=== PATIENT | female | born 1990 | race American Indian/Alaskan Native ===

== ENCOUNTER 2017-02-26 21:49 | Emergency (ER) | payer OTHER ==
[~2017-02-26] VITALS: Ht 170.2 cm; Wt 88.5 kg
[~2017-02-26 21:49] MED LIST: DEPO-PROVE150 MG/1 M IM; HYDROXYZINE HCL25 MG PO; KETOPROFEN50 MG PO; MACRODANTIN100 MG PO; NORCO 5-325 TA1 EACH PO; NUVARING VAGIN1 EACH VG; PYRIDIUM200 MG PO; SULFAMETHOXAZO1 EAC1 PO
== END 2017-02-26 23:24 | disposition home or self-care (01) ==
LOC: ED 21:49
DX: S70.12XA Contusion of left thigh, initial encounter (principal); S00.03XA Contusion of scalp, initial encounter; F17.200 Nicotine dependence, unspecified, uncomplicated; Z90.49 Acquired absence of other specified parts of digestive tract; Z88.1 Allergy status to other antibiotic agents; V49.9XXA Car occupant (driver) (passenger) injured in unspecified traffic accident, initial encounter; Y92.411 Interstate highway as the place of occurrence of the external cause
CPT/HCPCS: 99282

== ENCOUNTER 2018-05-27 14:58 | Inpatient (IN) | payer BC ==
[~2018-05-27] VITALS: Ht 172.7 cm; Wt 97.0 kg
== END 2018-05-30 12:20 | disposition home or self-care (01) | DRG 807 ==
LOC: FBCO 14:58 → FBC 15:15
PROVIDERS: ADMIT Obstetrics & Gynecology
PROC: 10E0XZZ Delivery of Products of Conception, External Approach (ICD-10-PCS; principal; 2018-05-27)
PROC: 0UQMXZZ Repair Vulva, External Approach (ICD-10-PCS; 2018-05-27)
PROC: 3E0R3BZ Introduction of Anesthetic Agent into Spinal Canal, Percutaneous Approach (ICD-10-PCS; 2018-05-27)
PROC: 00HU33Z Insertion of Infusion Device into Spinal Canal, Percutaneous Approach (ICD-10-PCS; 2018-05-27)
DX: O69.1XX0 Labor and delivery complicated by cord around neck, with compression, not applicable or unspecified (principal); Z37.0 Single live birth; Z3A.38 38 weeks gestation of pregnancy; O71.82 Other specified trauma to perineum and vulva
CPT/HCPCS: 36415; 85027; J0690; J2590; J3010

== ENCOUNTER 2020-08-13 11:59 | Emergency (ER) | payer BC ==
[~2020-08-13] VITALS: Ht 172.7 cm; Wt 90.7 kg
== END 2020-08-13 16:15 | disposition home or self-care (01) ==
LOC: ED 11:59
DX: M54.5 Low back pain (principal); K59.00 Constipation, unspecified; F17.200 Nicotine dependence, unspecified, uncomplicated; Z88.0 Allergy status to penicillin
CPT/HCPCS: 81001; 99283

== ENCOUNTER 2020-09-16 21:40 | Emergency (ER) | payer BC ==
[~2020-09-16] VITALS: Ht 172.7 cm; Wt 90.7 kg
== END 2020-09-16 23:47 | disposition home or self-care (01) ==
LOC: ED 21:40
DX: K80.70 Calculus of gallbladder and bile duct without cholecystitis without obstruction (principal); F17.200 Nicotine dependence, unspecified, uncomplicated; Z88.0 Allergy status to penicillin
CPT/HCPCS: 76705; 80053; 81001; 83690; 84703; 85025; 96374; 99284-25; J2405; J7030

== ENCOUNTER 2020-10-10 08:35 | Day surgery (SDC) | payer BC, OTHER ==
[~2020-10-10] VITALS: Ht 172.7 cm; Wt 86.4 kg
--- NOTE | 2020-10-10 14:57 | NUR ---
10/10/20 1457 Tabatha Carrillo 1452- PT ARRIVES TO PACU NONAROUSABLE TO NOXIOUS STIMULI WITH AN OPA IN PLACE. RESP EVEN AND UNLABORED. OXYGEN SAT HIGH 90'S TO 100% ON 6L VIA MASK.
[2020-10-10] MEDS ORDERED: IBUPROFEN600 MG PO (15:04)
[2020-10-10] MEDS ORDERED: OXYCODON-ACETA1 EAC2 PO (15:05)
[2020-10-10] MEDS ORDERED: ACETAMINOPHEN500 MG PO (15:05)
[2020-10-10] MEDS ORDERED: ZOFRAN4 MG PO (16:19)
--- NOTE | 2020-10-10 16:49 | NUR ---
1535: PATIENT BACK IN DAY SURGERY ROOM FROM PACU. RATES PAIN 2/10. PATIENT HESITANT TO TAKE PAIN MEDICATION DUE TO PAST EXPERIENCE WITH NAUSEA AND VOMITING WITH PAIN MEDS. DECLINES PAIN MEDS AT THIS TIME. VS CHECKED. ABDOMEN SITE WITH SMALL AMOUNT OF RED DRAINAGE. IV SITE WNL. SCDs ON. ICE WATER PLACED AT BEDSIDE. 1600: PATIENT GIVEN WARM BLANKETS PER REQUEST. 1640: VS CHECKED. PATIENT GIVEN SALTINE CRACKERS TO EAT. MEDICATED WITH 1 TAB OF PERCOCET. CALL LIGHT WITHIN REACH.
--- NOTE | 2020-10-10 17:03 | NUR ---
REQUESTED IV ZOFRAN TO HELP NAUSEA. AND GIVEN.
--- NOTE | 2020-10-10 18:00 | NUR ---
PROVIDED PATIENT WITH DISCHARGE INSTRUCTION, REINFORCED STERI STRIPS WITH BANDAIDS. PATIENT VERBALIZED UNDERSTANDING, ANSWERED PATIENT'S QUESTIONS AND CONCERNS. REPORTS PAIN 2/10 ON PAIN SCALE. PATIENT VOIDED WELL. PATIENT TRANSFERED INTO CAR WELL.
--- NOTE | 2020-10-11 10:56 | PATH ---
[facility] [address] [facility] [place], [place] [address] Signed SPECIMEN(S): A GALLBLADDER SPECIMEN SOURCE: A. GALLBLADDER CLINICAL HISTORY: Laparoscopic cholecystectomy. Cholecystitis with calculus. FINAL PATHOLOGIC DIAGNOSIS: Gallbladder, cholecystectomy: - Chronic cholecystitis with cholesterolosis. - Cholelithiasis. NAL:cml:C2NR MICROSCOPIC EXAMINATION: Histologic sections of all submitted blocks are examined by light microscopy. These findings, together with the gross examination, support the pathologic diagnosis. GROSS DESCRIPTION: The specimen, labeled "MV, gallbladder," is received in formalin and consists of Specimen: Previously opened gallbladder. Dimensions: 6.8 cm in length and 4.8 cm in inner circumference. Serosa: Violaceous and smooth. Cystic Duct: Unobstructed. Calculi: Several yellow-green gallstones that range in size from 0.2-1.9 cm in greatest dimension. Mucosa: Green-yellow and velvety. Wall thickness: 0.4 cm. Lymph node: No pericystic lymph nodes are grossly identified. Additional: None. [facility] Director sections are submitted in cassette (A1). JS (under the direct supervision of a pathologist) The Gross Description was prepared using a voice recognition system. The report was reviewed for accuracy; however, sound-alike word errors, addition and/or deletions may occur. If there is any question about this report, please contact Client Services. PERFORMING LABORATORY: The technical component was performed by [employer], Vic Torre, PATIENT NAME: AMITA MATAMOROS [facility] PATHOLOGY DATE OF : [birth year] REPORT #: [id number] PHYSICIAN: SAMMI SCANLON [facility]CP: [facility] REPORT IS CONFIDENTIAL AND NOT TO BE RELEASED WITHOUT AUTHORIZATION [facility] [address] [place], [place] [address] [place] [address] (Machine Loader: Christel De La Cruz MD; CLIA# [id number]). Professional interpretation was performed by [facility], [address] [address] (CLIA# [id number]). Diagnostician: Fior Otoole MD Pathologist Electronically Signed 10/11/2020 Copies: ~ PATIENT NAME: AMITA MATAMOROS [facility] DATE OF : [birth year] REPORT #: [id number] PHYSICIAN: SAMMI SCANLON PCP: [facility] REPORT IS CONFIDENTIAL AND NOT TO BE RELEASED WITHOUT AUTHORIZATION
--- NOTE | 2020-10-14 08:22 | OR ---
[facility] [place] [facility] [address] [place], [place] [address] Signed DATE OF OPERATION: 10/10/2020 SURGEON: Armando Mcarthur MD PREOPERATIVE DIAGNOSIS: Chronic calculous cholecystitis. POSTOPERATIVE DIAGNOSIS: Chronic calculous cholecystitis. PROCEDURE: Laparoscopic cholecystectomy with intraoperative cholangiogram. ANESTHESIA: General endotracheal, Omero Ludmila, DRUG ROOM CLERK and local 10 mL of 0.25% Marcaine with epinephrine. INDICATION: This 30-year-old woman is a patient of Jael Lynch of [facility] and is referred for consideration of cholecystectomy. She began having right upper abdominal and posterior thoracic pain about four months ago and has had at least 4 similar such episodes since then. She was seen in the emergency room on September 16, 2020, evaluated by Dr. Weber including a gallbladder ultrasound, which showed hydropic gallbladder with some gallstones. She has been avoiding fatty food and being careful in her diet which has made her symptoms relatively manageable. She is admitted at this time to undergo cholecystectomy preferred by laparoscopic approach understanding the risk of bleeding, infection, and perforation. FINDINGS: The gallbladder was not hydropic, but it was chronically inflamed. Cholecystectomy was performed without problem. The gallbladder once opened on the back table had several large gallstones. There was no sign of neoplasm. Cholangiogram was normal. There was some mild dilation of the common hepatic duct proper but not to the extent that it would represent choledochal cyst or anything of that sort. DESCRIPTION OF PROCEDURE: The patient was brought to the operating room, given a general endotracheal anesthetic. Preoperative antibiotic Ancef was given. Sequential compression device stockings were used and heparin subcutaneously administered. Electronically Signed By: ARMANDO MCARTHUR MD 10/14/20 0822 PATIENT NAME: AMITA MATAMOROS OPERATIVE REPORT DATE OF : [birth year] REPORT #: [id number] PHYSICIAN: ARMANDO MCARTHUR MD PCP: [facility] REPORT IS CONFIDENTIAL AND NOT TO BE RELEASED WITHOUT AUTHORIZATION [facility] [place] [facility] [address] [place], [place] [address] Signed The abdomen was prepared with a chlorhexidine solution and draped sterilely. An infraumbilical incision was made and using an open Mehran cannula technique pneumoperitoneum was achieved at level of 14 mmHg with carbon dioxide gas. Intraabdominal inspection showed no sign of ascites or carcinomatosis. The liver appeared normal. The gallbladder was chronically inflamed. There were omental adhesions attached to it. Three additional trocars were placed in usual configuration in the subxiphoid, right midclavicular, and right anterior axillary line. The gallbladder was elevated cephalad and omental adhesions were taken down from the gallbladder with blunt dissection. Cautery was used for hemostasis. The gallbladder was elevated more fully and the infundibulum dissected free and retracted laterally and using blunt electrocautery dissection, the triangle of Calot was dissected free identifying well a single cystic artery as the cystic duct itself. Clips were applied to the cystic artery and a clip was applied across the gallbladder cystic duct junction. A transverse choledochotomy was made in the cystic duct allowing for egress of bile. It was clear. There were no stones. Using the Kwan type cholangiocatheter system, intraoperative cholangiography was undertaken showing free flow of contrast in biliary tree with prompt emptying into the duodenum. Retrograde filling showed slight dilation of the common hepatic duct just above the cystic duct insertion, but it did not appear pathologic, it may have been an artifact (see in the common hepatic duct on end). The catheter was removed and the cystic duct was then triply clipped and divided and the gallbladder dissected free in a retrograde fashion using electrocautery. The gallbladder was not entered. The gallbladder was extracted through the infraumbilical port site, opened on the back table and found to have large gallstones and chronic inflammation of the mucosa, but no sign of neoplasm. Irrigation was undertaken of the subhepatic space, there was no sign of bile leak, bleeding or other problems. The trocars were removed under direct visualization showing no sign of bleeding. The infraumbilical fascial incision was reapproximated with interrupted 0 Vicryl suture. A 20 mL of 0.25% Marcaine with epinephrine was injected locally. The skin was closed with interrupted 3-0 Vicryl. Steri-Strips were applied. The patient was ultimately extubated and transferred to the recovery room in good condition having suffered no complications. Sponge, needle, and instrument counts were reported as correct x3. Armando Mcarthur MD Electronically Signed By: ARMANDO MCARTHUR MD 10/14/20 0822 PATIENT NAME: AMITA MATAMOROS [facility] OPERATIVE REPORT DATE OF : [birth year] REPORT #: [id number] PHYSICIAN: ARMANDO MCARTHUR MD PCP: [facility] REPORT IS CONFIDENTIAL AND NOT TO BE RELEASED WITHOUT AUTHORIZATION [address] [address] Signed AMIRA/CARRINGTON /[id number] cc: Brigitte Weber MD [facility] Copies: BRIGITTE WEBER MD ~ Electronically Signed By: ARMANDO MCARTHUR MD 10/14/20821 PATIENT NAME: AMITA MATAMOROS [facility] OPERATIVE REPORT DATE OF : [birth year] REPORT #: [id number] PHYSICIAN: ARMANDO MCARTHUR MD PCP: [facility] REPORT IS CONFIDENTIAL AND NOT TO BE RELEASED WITHOUT AUTHORIZATION
== END 2020-10-10 17:45 | disposition home or self-care (01) ==
LOC: DS 08:35
PROVIDERS: ATTEND Surgery
PROC: BF13YZZ Fluoroscopy of Gallbladder and Bile Ducts using Other Contrast (ICD-10-PCS; 2020-10-10)
PROC: 0FT44ZZ Resection of Gallbladder, Percutaneous Endoscopic Approach (ICD-10-PCS; principal; 2020-10-10 10:30)
DX: K80.10 Calculus of gallbladder with chronic cholecystitis without obstruction (principal); F17.210 Nicotine dependence, cigarettes, uncomplicated; E66.9 Obesity, unspecified; Z90.49 Acquired absence of other specified parts of digestive tract; Z88.0 Allergy status to penicillin; Z68.28 Body mass index [BMI] 28.0-28.9, adult
CPT/HCPCS: 00790; 74300; J0690; J1100; J1644; J1885; J2001; J2250; J2405; J2704; J3010; J7121; Q9967

== ENCOUNTER 2021-06-22 08:51 | Emergency (ER) | payer BC, OTHER ==
[~2021-06-22] VITALS: Ht 172.7 cm; Wt 98.7 kg
[~2021-06-22 08:51] MED LIST changes: +ACETAMINOPHEN500 MG PO; +IBUPROFEN600 MG PO; +OXYCODON-ACETA1 EAC2 PO; +ZOFRAN4 MG PO
[2021-06-22] MEDS ORDERED: TAMIFLU75 MG PO (10:49)
--- NOTE | 2021-06-22 18:43 | EKG ---
[facility] [address] [facility] [place] [address] Signed Sinus tachycardia Nonspecific T wave abnormality Abnormal ECG No previous ECGs available Confirmed by SHANICE CAPUTO MD ([id number]) on 06/22/2021 6:43:32 PM Electronically Signed By: SHANICE CAPUTO MD 06/22/211842 PATIENT NAME: AMITA MATAMOROS [facility] Electro[facility]ogram DATE OF : [birth year] PHYSICIAN: SHANICE CAPUTO MD REPORT #: [id number] REPORT IS CONFIDENTIAL AND NOT TO BE RELEASED WITHOUT AUTHORIZATION
== END 2021-06-22 11:17 | disposition home or self-care (01) ==
LOC: ED 08:51
DX: J10.1 Influenza due to other identified influenza virus with other respiratory manifestations (principal); Z20.822 Contact with and (suspected) exposure to COVID-19; F17.200 Nicotine dependence, unspecified, uncomplicated; Z88.0 Allergy status to penicillin
CPT/HCPCS: 71045; 93005; 93010; 99285-25; A9270; C9803; U0003